=== PATIENT | male | born 1965 | race Caucasian/White ===

== ENCOUNTER 2021-06-27 10:49 | Outpatient (CLI) | payer OTHER, SELFPAY ==
--- NOTE | 2021-06-27 11:10 | PC.NURSE ---
Pt to room 212 amb. Complains of cough. No other symptoms. A&Ox3. [facility] plan of care discussed. Consent signed. Oriented to room. Call pierre in reach, reminded to call with needs.
[2021-06-27] MEDS: ACETAMINOPHEN 325 MG TABLET 650 MG PO (11:18)
[2021-06-27] MEDS: FAMOTIDINE 20 MG TABLET PO (11:18)
[2021-06-27] MEDS: diphenhydrAMINE HCl CAP 25 MG CAPSULE PO (11:18)
[2021-06-27 11:21] VITALS: BP 152/108; PULSE 108; RESP 20; O2SAT 93
--- NOTE | 2021-06-27 12:41 | PC.NURSE ---
Pt tolerated infusion well. Discharge to home per self without complaint.
== END 2021-06-27 10:50 | disposition home or self-care (01) ==
LOC: CHSTREATRM 10:51
PROVIDERS: PCP Internal Medicine; Visit Provider Internal Medicine
DX: U07.1 COVID-19 (principal)
CPT/HCPCS: A9270; J7050; M0243; Q0244

== ENCOUNTER 2021-10-23 08:01 | Outpatient (CLI) | payer OTHER, SELFPAY ==
--- NOTE | 2021-10-23 08:09 | ECG_ITS ---
Measurements Intervals [place] Rate: 87 P: 22 NM: 170 QRS: -12 QRSD: 84 T: 11 QT: 355 QTc: 429 Interpretive Statements SINUS RHYTHM NO PREVIOUS ECG AVAILABLE FOR COMPARISON Electronically Signed On 10-23-2021 18:52:46 CDT by Rochelle Fonseca M.D.
[2021-10-23 08:43] LABS: Anion Gap 5 mmol/L (8-16); Blood Urea Nitrogen 14 mg/dL (9-20); Carbon Dioxide 27 mmol/L (22-30); Chloride 102 mmol/L (98-107); Estimated Glomerular Filt Rate > 60; Glucose 110 mg/dL (65-110); Potassium 3.6 mmol/L (3.4-5.0); Sodium 134 mmol/L (137-145)
== END 2021-10-23 08:02 | disposition home or self-care (01) ==
LOC: ANHSURGERY 08:06
PROVIDERS: Anesthesiology; PCP Internal Medicine; Visit Provider Orthopaedic Surgery
DX: Z01.818 Encounter for other preprocedural examination (principal); I10 Essential (primary) hypertension; S43.003A Unspecified subluxation of unspecified shoulder joint, initial encounter; X58.XXXA Exposure to other specified factors, initial encounter
CPT/HCPCS: 36415; 80048; 87070; 87147; 87181; 87186; 93005

== ENCOUNTER 2021-10-29 00:25 | Day surgery (SDC) | payer OTHER, SELFPAY ==
--- NOTE | 2021-10-21 14:42 | PC.NURSE ---
Addendum entered by Rocio Montanez RN 10/21/21 15:04: PT TO TAKE LORAZEPAM ON MORNING OF THE SURGERY Original Note: Report to the Outpatient Waiting Room, entrance under the green pavilion located off [facility], at time _10:00_ on date 10/29/21 . OR Time: 12:00 . IF YOUR SURGERY TIME IS ADJUSTED, WE WILL CALL YOU ON Wednesday10/28/21 - You and your visitor will be asked a series of questions to screen for COVID 19 for your protection. - A mask is required within the hospital. Preoperative COVID Testing Requirements: No COVID Test needed. PT IS VACCINATED. PLEASE BRING A COPY OF YOUR VACCINATION CARD ON THE DAY OF SURGERY Patients may have clear liquids (water, carbonated beverages, clear teas, apple juice) until 3 hours prior to surgery with a maximum of 20 ounces. NO CLEAR LIQUIDS AFTER 0900 ON THE MORNING OF SURGERY - No food from midnight until time of surgery - Infants may have breast milk until 4 hours before surgery, formula 6 hours prior to surgery. - Children will be allowed to drink immediately following surgery. If applicable, please bring a bottle or sippy cup to assist with drinking. Juice, water, soda, and popsicles are readily available. For infants on formula, please bring formula the day of surgery. Pacifiers are allowed. Take the following medications with a SIP of water the morning of surgery: ___ALPRAZOLAM Medications to discontinue per physician N/A Date to take last dose____N/A Please no make-up, nail chinese, hairspray, perfume, deodorant, or body powder the day of surgery. No jewelry (including any body piercings) or valuables the day of surgery, leave them at home. Please take a shower or bath the night before, or the morning of, surgery with an antibacterial soap. Wear comfortable, loose fitting clothing. - Jewelry must be removed prior to entering the operating room. Rings and piercings that are not removed may be cut off. - The hospital will not accept responsibility for valuables. - Please leave all valuables, including medications, at home the day of surgery. If you are going home after surgery, a licensed horse and wagon driver must drive you home. - NO public transportation without another adult. - We recommend that an adult stay with you for 24 hours following discharge. - We also recommend that you do not drive, make important decision, drink alcoholic beverages, or take any drugs that were not prescribed by your health care provider for at least 24 hours after your discharge time. For Pediatric surgeries, we recommend two adults accompany the child home (only one inside the building at this time). One visitor will be allowed to accompany the patient into the hospital. Patients visitor will be instructed to remain with patient at all times or leave the building. We will allow the visitor to come back to the postoperative area when patient is ready. Follow any additional instructions given to you from your surgeon. Telephone instructions given to EVERARDO and asked if any additional questions and then verbalized understanding. Patient advised to call surgeon office or pre surgery nurse liaison [phone] if any additional questions.
--- NOTE | 2021-10-27 12:42 | PM.IMHP ---
H&P: HPI History of Present Illness Date/Time: 10/27/21 12:42 56-year-old male patient Dr. Vera, presents today for arthroscopy of his left shoulder with mini open rotator cuff repair and biceps tenodesis. Patient injured left shoulder last summer when he tripped going up the stairs at his house. He fell hard and started having pain left shoulder at that time. Has progressively worsened. 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 He feels that the shoulder not only is painful but also feels weaker. He is on and take anti-inflammatories due to history of anaphylaxis profound causing some throat swelling. Patient has had a recent MRI scan which showed subluxation of long head of the biceps as well as significant bursal sided partial-thickness tearing of the supraspinatus well as the infraspinatus. Patient feels he has significant symptoms on a regular basis and would like to proceed with surgery for repair of the rotator cuff tendon. Chief Complaint: Left shoulder partial-thickness rotator cuff tear with subluxation of the biceps tendon. Review of Systems Review of Systems: All systems reviewed & are unremarkable except as noted in HPI and below PMFSH Past Medical History Medical History Ankylosing spondylitis Asthma Surgical History Surgical History History of hernia repair Family History Family History Mother Patient's mother is Father Family history of heart disease in male family member before age 55, Onset Age: 39 Other Family history of coronary artery disease Family history of malignant neoplasm Social History Social History Smoking status: Current some day smoker (cigars) Tobacco type: cigars Second hand tobacco smoke exposure: No Alcohol intake: current Alcohol use details: social Substance use: never Substance use type: does not use Spiritual care concerns: No Meds Home Medications and Allergies Home Medications Medication Instructions Recorded Confirmed Type lisinopril 20 See Rx Instructions .ROUTE 08/01/21 10/23/21 Rx mg-hydrochlorothiazide 12.5 mg .COMPLEX #90 tablet tablet rosuvastatin 20 mg tablet See Rx Instructions .ROUTE 08/01/21 10/23/21 Rx .COMPLEX #90 tablet lorazepam 0.5 mg tablet 0.5 mg PO TID PRN #90 tablet 08/14/21 10/23/21 Rx Allergies Allergy/AdvReac Type Severity Reaction Status Date / Time aspirin Allergy Unknown Swelling Verified 10/23/21 11:27 of Lip/Tongue/Throat ibuprofen Allergy Unknown Swelling Verified 10/23/21 11:27 of Lip/Tongue/Throat Exam Narrative: 56-year-old male alert pleasant. He is 5 ft 7 220 lb. He has moderate weakness with external rotation as well as abduction strength testing. Mild belly press weakness all with significant pain. He is able do a subscap lift-off. Neck range of motion is full without discomfort. No tenderness over the AC joint. 2+ radial pulse. No swelling around the shoulder. Shoulder has full range of motion, elevates to 150 external rotates to 80 and internally rotates to L1. Biceps muscle belly is normal contour. Resp: Auscultation: clear to auscultation bilaterally Cardio: Rate: regular rate Rhythm: regular rhythm Assessment and Plan Additional Plan 56-year-old male who has a significant partial-thickness tear involving the subscapularis, supraspinatus and infraspinatus tendon of the left shoulder. He also has subluxation long head of the biceps. Dr. Mckeon discussed treatment options. Patient feels he would like proceed with surgery at this point. Surgical procedure as well as risks complications were discussed in detail questions were answered and we will proceed. Patient will see his primary care doctor juan
[2021-10-29] VITALS (7 sets, daily range): BP systolic 119–145; BP diastolic 81–99; PULSE 81–103; RESP 14–21; TEMP 36.6–36.7; O2SAT 95–98
--- NOTE | 2021-10-29 08:00 | P.PNAN_ITS ---
Anes - Initial Pre Proc Eval Procedure: Operation Date: 10/29/21 12:00 Proposed Procedures p Left Shoulder Arthroscopy, Bicep Tenodesis, Mini Open Rotator Cuff Repair, Proceed As Indicated - Remy Mckeon MD Date/Time: 10/29/21 08:00 Surgeon: Remy Mckeon MD Pre Op Diagnosis: bicep sublaxation, partl rot cuff tear lt shoulder Patient Data Age: 56 Gender: M Height: 1.73 m Weight: 100 kg Allergies Allergy/AdvReac Type Severity Reaction Status Date / Time aspirin Allergy Unknown Swelling Verified 10/29/21 10:33 of Lip/Tongue/Throat ibuprofen Allergy Unknown Swelling Verified 10/29/21 10:33 of Lip/Tongue/Throat Home Medications Medication Instructions Recorded Confirmed Type lisinopril 20 See Rx Instructions .ROUTE 08/01/21 10/29/21 Rx mg-hydrochlorothiazide 12.5 mg .COMPLEX #90 tablet tablet rosuvastatin 20 mg tablet See Rx Instructions .ROUTE 08/01/21 10/29/21 Rx .COMPLEX #90 tablet lorazepam 0.5 mg tablet 0.5 mg PO TID PRN #90 tablet 08/14/21 10/29/21 Rx Patient hx anesthesia problems: none Family hx anesthesia problems: none Results Review: All pre-operative results and documents have been reviewed as part of the pre-operative evaluation. [facility] Past Medical History Medical History (Updated 10/29/21 @ 08:00 by Earnest Cantor DO) Ankylosing spondylitis Asthma Essential hypertension Mixed hyperlipidemia Surgical History Surgical History History of hernia repair Family History Family History Mother Patient's mother is Father Family history of heart disease in male family member before age 55, Onset Age: 39 Other Family history of coronary artery disease Family history of malignant neoplasm Social History Social History Smoking status: Current some day smoker (cigars) Tobacco type: cigars Second hand tobacco smoke exposure: No Alcohol intake: current Alcohol use details: social Substance use: never Substance use type: does not use Living arrangements: with family Spiritual care concerns: No Anes - Eval Final PreProcedure Day of Procedure 10/29/21 08:00 Patient weight: obese Heart: regular rate and rhythm Lungs: clear to auscultation and normal air movement Airway: Mallampati scale class II Neurological: alert and oriented Last oral intake: >/= 8 hours ASA classification: III Emergent: no Anesthetic plan: proceed Anesthesia type and monitoring: general ETT and standard monitoring Results Review: All pre-operative results and documents have been reviewed as part of the pre-operative evaluation. Informed Consent: The patient's anesthetic plan and its attendant risks and benefits were discussed with the patient/family/POA. Questions were solicited and answers provided to the satisfaction of the patient/family/POA.
[2021-10-29] MEDS: ACETAMINOPHEN 500 MG TABLET 1000 MG PO (11:00)
[2021-10-29] MEDS: LACTATED RINGERS 1,000 ML 30 ML IV CONT ×2 (11:10→15:55)
--- NOTE | 2021-10-29 11:44 | WPDHPUPDATE1 ---
History and Physical Update Update Date/Time: 10/29/21 11:44 History and Physical has been reviewed, including an updated exam of the patient. There are NO changes in the patient's condition. Risks, benefits, and alternatives have been discussed and questions answered. Patient agrees to proceed with procedure.
--- NOTE | 2021-10-29 11:52 | WPDHPUPDATE1 ---
History and Physical Update Update Date/Time: 10/29/21 11:52 History and Physical has been reviewed, including an updated exam of the patient. There are NO changes in the patient's condition. Risks, benefits, and alternatives have been discussed and questions answered. Patient agrees to proceed with procedure.
--- NOTE | 2021-10-29 12:00 | WPDANESPNB ---
Anes - Peripheral Nerve Block Date/Time: 10/29/21 12:00 I have discussed with the patient/family/POA the placement of a peripheral nerve block for post-operative pain management, including associated risks, benefits, complications, and side effects. Alternative methods of post-operative analgesia were detailed. Questions were solicited and answers provided to the satisfaction of the patient/family/POA. Time-Out: A pre-procedural Time-Out was completed immediately before starting the procedure and confirmed: Patient Identification, Site, Procedure, Patient Position and the Availability of Requisite Equipment. Clinical Indications: Acute post-operative pain management requested by the operative surgeon. Nerve Block Insertion Note Anes-nerve block: interscalene left Patient position: supine Skin prep: chlorhexidine Needle: 22 gauge, stimulating, insulated echogenic needle. Needle length: 50 mm Technique: ultrasound Injectate: bupivacaine 0.5% with epi 5 mcg/ml (30cc- no epi) Observations: tolerated well Complications: none Procedure start time:: 1156 Procedure end time:: 1199
[2021-10-29] MEDS: ceFAZolin 2 GM/D5W 50 ML 2 GM/50 ML BAG IVPB (12:03)
[2021-10-29] MEDS: EPINEPHrine HCL INJ 1 MG/ML AMPUL 2 MG IRRIGATION (13:52)
[2021-10-29] MEDS: ceFAZolin SODIUM 1 GM VIAL IRRIGATION (14:21)
[2021-10-29] MEDS: ceFAZolin SODIUM 1 GM VIAL 2 GM IV PUSH (15:20)
--- NOTE | 2021-10-29 15:52 | W.PM.PROC2 ---
Procedure Note - Detailed Date of Procedure 10/29/21 Pre-op Diagnosis Partial tear subscapularis with subluxation long head of the biceps and partial tearing, high-grade partial-thickness tear supraspinatus tendon Post-op Diagnosis Same Procedure Performed Arthroscopic acromioplasty with subacromial decompression, debridement labrum, mini open biceps tenodesis in the bicipital groove through keyhole technique and repair delamination type partial thickness tear of subscapularis and repair high-grade partial-thickness tear supraspinatus tendon. Left shoulder Surgeon Remy Mckeon MD Ammonium Nitrate Crystallizer FA Anesthesia General and Regional Description of Procedure Patient was brought the operating room after interscalene block administered. He received 2 g of Ancef weight based vancomycin. He was placed in the beach chair position the head carefully secured in neutral alignment left shoulder prepped draped usual fashion. All the skin was covered with Ioban accept the top portion. Posterior portal was placed. The articular surfaces looked fine. There was some fraying of the superior labrum and efficiency at the anterior superior labrum. There severe maceration of the long head of the biceps as it rode over the lesser tuberosity. The scope was placed in the subacromial space. Anterior portal was placed the lateral portal utilized. CA ligament was debrided from the undersurface of the anterior margin of the acromion and a limited anterior acromioplasty performed with the acromion shante in the posterior portal creating a flat acromial surface. We could see an area of relative lucency in softness in the supraspinatus tendon but no full-thickness bursal sided tear noted. The arthroscopic instruments removed the rest the skin covered with Ioban. Outer gloves were changed. A 2 in longitudinal incision was made over the anterior superior shoulder. The tendinous raphe between the anterior middle heads of the deltoid was incised for a split of 4 cm and a self-retaining retractor placed. The defect in the supraspinatus was identified by palpation and there was just a thin translucent membrane about 4 mm diameter right at the greater tuberosity which was entered with a [place] elevator and carefully debrided the supraspinatus footprint enlarging the hole to about 5 or 6 mm. Underneath the tear was about 11 or 12 mm wide. We then approached the biceps tendon which we could feel subluxed with the muscle tuberosity. The retinaculum over the bicipital groove was incised longitudinally. The long head of the biceps was marked with a stay stitch and we then placed the arthroscope back in the shoulder and through the anterior superior portal released the long head of the biceps from the superior labrum using a long narrow arthroscopic punch. The stump was smoothed. The long of the biceps was delivered from the wound and we used a 2. FiberWire and balled up the portion proximal to the placed locations stitch and this gave us a 9 mm diameter sphere. There was only minimal maceration and distal to this. We made a bur hole in the upper portion of the bicipital groove about 9 mm in diameter then a 3 mm wide slot about 8 mm diameter distal from that. After irrigation with antibiotic solution ball the portion of the biceps was inserted had a nice snug fit but went in and this was moved distally and the tendon itself rested entirely in the slot with stability. The retinacular observe the more superficial portion of the subscapularis that had been torn off the surface of the will lesser tuberosity had to be repaired down. We carefully scraped the anterior surface lesser tuberosity with 15 blade scalpel and lightly excoriated with the shnate and made 2 bur holes and 2 Arthrex suture tapes were passed and passed through the anterior fibers of the subscapularis in a mattress fashion securing this down in place. We then reapproximated the bicipital groove aponeurosis with 2. Ethibond and 0 Ethibond
--- NOTE | 2021-10-29 16:46 | SUR.PHASEI ---
1615 dr payan here and applied abductor sling, pt just awakening.
[2021-10-29 18:06] LABS: HIV 1/2 Ab P24 Ag Result Negative (Negative); Hepatitis B Surface Anti Res Negative; Hepatitis C Virus Antibody Negative (Negative)
== END 2021-10-29 17:45 | disposition home or self-care (01) ==
PROVIDERS: PCP Internal Medicine; Visit Provider Orthopaedic Surgery
PROC: (CPT 29805; principal; 2021-10-29 12:00)
DX: S46.012A Strain of muscle(s) and tendon(s) of the rotator cuff of left shoulder, initial encounter (principal); S46.112A Strain of muscle, fascia and tendon of long head of biceps, left arm, initial encounter; W10.9XXA Fall (on) (from) unspecified stairs and steps, initial encounter; G89.18 Other acute postprocedural pain; I10 Essential (primary) hypertension; E78.2 Mixed hyperlipidemia; J45.909 Unspecified asthma, uncomplicated; Z72.0 Tobacco use; E66.9 Obesity, unspecified; Z68.33 Body mass index [BMI] 33.0-33.9, adult; Z11.4 Encounter for screening for human immunodeficiency virus [HIV]
CPT/HCPCS: 29822; 23410; 23430; 64415; 36415; 80048; 86703; 86706; 86803; 87070; 87147; 87181; 87186; 93005; A4565; A9270; G0432; J0171; J0690; J1100; J2250; J2405; J2704; J2710; J3010; J3370; J7120